=== PATIENT | female | born 1990 | race Two or more races ===

== ENCOUNTER 2024-12-12 21:57 | Emergency (ER) | payer OTHER ==
[~2024-12-12] VITALS: Ht 160 cm; Wt 104.3 kg
[2024-12-12] MEDS ORDERED: LORAZEPAM 1 MG TABLET ONE (22:24)
[2024-12-12] MEDS: LORAZEPAM 1 MG TABLET PO ONE (22:26)
[2024-12-12] MEDS ORDERED: ONDANSETRON 4 MG TAB.RAPDIS ONE (23:12)
[2024-12-12] MEDS: ONDANSETRON 4 MG TAB.RAPDIS SL ONE (23:14)
[2024-12-13] MEDS ORDERED: ONDANSETRON HCL/PF 4 MG/2 ML VIAL ONE (00:16)
[2024-12-13] MEDS: ONDANSETRON HCL/PF - ER 4 MG/2 ML VIAL IM ONE (00:21)
[2024-12-13 00:29] VITALS: BP 112/79; TEMP 98.4; O2SAT 97
== END 2024-12-13 00:30 | disposition home or self-care (01) ==
LOC: ER 21:59
DX: F41.0 Panic disorder [episodic paroxysmal anxiety] (principal); F41.9 Anxiety disorder, unspecified; Z60.2 Problems related to living alone
CPT/HCPCS: 99283; 96372; Q0162; J2405 ×2